=== PATIENT | female | born 1955 | race Caucasian/White ===

== ENCOUNTER 2024-03-30 13:36 | Emergency (ER) | payer MEDICARE, OTHER | END 2024-03-30 14:12 | disposition home or self-care (01) | LOC: MADERS 13:36 | DX: S52.502A Unspecified fracture of the lower end of left radius, initial encounter for closed fracture (principal); M19.032 Primary osteoarthritis, left wrist; E78.00 Pure hypercholesterolemia, unspecified; I10 Essential (primary) hypertension; Z79.899 Other long term (current) drug therapy; W10.8XXA Fall (on) (from) other stairs and steps, initial encounter ==

== ENCOUNTER 2024-08-15 14:49 | Emergency (ER) | payer MEDICARE | END 2024-08-15 15:13 | disposition home or self-care (01) | LOC: MADERS 14:49 | DX: I10 Essential (primary) hypertension (principal); E78.00 Pure hypercholesterolemia, unspecified; Z79.899 Other long term (current) drug therapy | CPT/HCPCS: 99283 ==